=== PATIENT | female | born 1995 | race Caucasian/White ===

== ENCOUNTER 2017-01-24 11:34 | Emergency (ER) | payer SELFPAY ==
--- NOTE | 2017-01-24 11:43 | ER Document Report ---
ED Medical Screen (RME) - General Stated Complaint: EAR PAIN Notes: pain in right ear on wednesday thats become more severe over the course of the week wiht associated hearing loss. admits to nasal drainage. denies fevers. + sick exposure at home I have greeted and performed a rapid initial assessment of this patient. A comprehensive ED assessment and evaluation of the patient, analysis of test results and completion of the medical decision making process will be conducted by additional ED providers. - Related Data Allergies/Adverse Reactions: No Known Allergies Allergy (Verified 01/24/17 11:41) Physical Exam - Vital signs Vitals: Temp Pulse Resp BP Pulse Ox 98.8 F 84 18 115/57 L 99 01/24/17 11:38 01/24/17 11:38 01/24/17 11:38 01/24/17 11:38 01/24/17 11:38 Course - Vital Signs Vital signs: Temp Pulse Resp BP Pulse Ox 98.8 F 84 18 115/57 L 99 01/24/17 11:38 01/24/17 11:38 01/24/17 11:38 01/24/17 11:38 01/24/17 11:38
--- NOTE | 2017-01-24 12:15 | ER Document Report ---
HPI - HPI Pain Level: 3 Context: 21 yo female c/o intermittant sharp pain in both ears with decreased hearing. + nasal drainage and congestion. no fever or sore throat Associated Symptoms: None Exacerbated by: Denies Relieved by: Denies - ROS Systems Reviewed and Negative: Yes All other systems reviewed and negative - CARDIOVASCULAR Cardiovascular: DENIES: Chest pain - DERM Skin Color: Normal Past Medical History - General Information source: Patient - Social History Smoking Status: Unknown if Ever Smoked Chew tobacco use (# tins/day): No Frequency of alcohol use: None Drug Abuse: None Lives with: Family Family History: Reviewed & Not Pertinent Patient has suicidal ideation: No Patient has homicidal ideation: No - Medical History Medical History: Negative Renal/ Medical History: Denies: Hx Peritoneal Dialysis Surgical Hx: Negative - Immunizations Hx Diphtheria, Pertussis, Tetanus Vaccination: Yes Vertical Provider Document - CONSTITUTIONAL Agree With Documented VS: Yes - INFECTION CONTROL TRAVEL OUTSIDE OF THE [place] IN LAST 30 DAYS: No - HEENT HEENT: Atraumatic, PERRLA Notes: + bilat effusions. - NECK Neck: Normal Inspection, Supple - RESPIRATORY Respiratory: Breath Sounds Normal, No Respiratory Distress O2 Sat by Pulse Oximetry: 99 - GI/ABDOMEN Gastrointestinal: Abdomen Soft - MUSCULOSKELETAL/EXTREMETIES Musculoskeletal/Extremeties: MAEW - NEURO Level of Consciousness: Awake, Alert, Appropriate - DERM Integumentary: Warm, Dry Course - Vital Signs Vital signs: Temp Pulse Resp BP Pulse Ox 98.8 F 84 18 115/57 L 99 01/24/17 11:38 01/24/17 11:38 01/24/17 11:38 01/24/17 11:38 01/24/17 11:38 Discharge - Discharge Clinical Impression: Bilateral serous otitis media Qualifiers: Chronicity: acute Recurrence: not specified as recurrent Qualified Code(s): H65.03 - Acute serous otitis media, bilateral Condition: Stable Disposition: HOME, SELF-CARE Instructions: Serous Otitis Media ([facility]) Additional Instructions: recommend OTC antihistamine + decongestant such as Cari D, Zyrtec D to dry up fluid behind your ear drums there is no infection at this time, but if the fluid stays there for a period of time, it could turn into an infection please follow up with your primary care if pain intensifies or if you develop a fever
[2017-01-24 12:29] VITALS: BP 133/65
== END 2017-01-24 12:29 | disposition home or self-care (01) ==
LOC: ER 11:34
DX: H65.03 Acute serous otitis media, bilateral (principal); H92.03 Otalgia, bilateral; H91.93 Unspecified hearing loss, bilateral; R09.89 Other specified symptoms and signs involving the circulatory and respiratory systems; R09.81 Nasal congestion
CPT/HCPCS: 99282